=== PATIENT | male | born 1985 | race Caucasian/White ===

== ENCOUNTER 2017-01-17 16:43 | Observation (INO) | payer OTHER ==
[~2017-01-17] VITALS: Ht 180.3 cm; Wt 67.9 kg
[2017-01-17] MEDS ORDERED: VST25HP PO (17:25)
[2017-01-17] MEDS ORDERED: TRAZ100T29 PO (17:25)
[2017-01-17 17:32] LABS: BASO % 0.7 %; BASO ABS # 0.05 K/uL (0-0.2); COMPLETE YES; EOS % 0.7 %; HEMATOCRIT 43.9 % (42-52); IG% 0.3 %; LYMPH % 26.1 %; LYMPH ABS # 1.84 K/uL (1.2-3.4); MEAN CELL VOLUME 90.3 fL (80-100); MEAN CORPUSCULAR HEMOGLOBIN 31.9 pg (25-34); MEAN CORPUSCULAR HGB CONC 35.3 g/dl (32-36); MEAN PLATELET VOLUME 9.8 fL (7.4-10.4); MONO % 7.5 %; NEUT % 64.7 %; PLATELET COUNT 326 K/uL (130-400); RED BLOOD COUNT 4.86 M/uL (4.7-6.1); WHITE BLOOD COUNT 7.06 K/uL (4.8-10.8)
[2017-01-17 17:44] LABS: PROTHROMBIN TIME (PATIENT) 10.6 SECONDS (9.0-12.0)
[2017-01-17 17:44] LABS: URINE APPEARANCE CLEAR (CLEAR); URINE BILIRUBIN NEG (NEG); URINE COLOR YELLOW; URINE NITRITE NEG (NEG); URINE PH 6.5 (4.5-7.5); UROBILINOGEN NEG (NEG); ZZUR CULT IF INDIC CLEAN CATCH NO
[2017-01-17 17:45] LABS: BUN/CREATININE RATIO 6.6 (10-20); CALCIUM 8.9 mg/dl (8.5-10.1); CREATININE 1.2 mg/dl (0.60-1.40); POTASSIUM 3.5 mmol/L (3.5-5.1)
[2017-01-17 17:48] LABS: MANUAL MICROSCOPIC REQUIRED? NO; REVIEW REQ? NO
[2017-01-17 17:56] LABS: THYROID STIMULATING HORMONE 1.48 uIu/ml (0.300-4.500)
[2017-01-17] MEDS ORDERED: OPTIRAY 320 IV PRN (18:15)
[2017-01-17] MEDS ORDERED: NITROGLYCERIN 0.4 MG SL PER TAB CHARGE SL PRN (18:30)
[2017-01-17] MEDS ORDERED: ACETAMINOPHEN 325 MG TAB PO PRN (18:30)
[2017-01-17] MEDS ORDERED: ZOLPIDEM TARTRATE 5 MG TAB PO PRN (18:30)
[2017-01-17] MEDS ORDERED: ONDANSETRON INJ 2 MG/ML 2 ML VIAL IV PRN (18:30)
[2017-01-17 18:31] LABS: BENZODIAZEPINE, URINE NEG (NEG); COCAINE,URINE NEG (NEG); PHENCYCLIDINE, URINE NEG (NEG)
--- NOTE | 2017-01-17 18:51 | DIAGNOSTIC IMAGING REPORT ---
CHEST CTA for PULMONARY ARTERIES CT DOSE: 211.88 mGy.cm HISTORY: Atypical chest pain. TECHNIQUE: Multiaxial CT images of the chest were performed following the intravenous administration of contrast to evaluate the pulmonary arteries. Maximal intensity projection images were also obtained. COMPARISON STUDY: None. FINDINGS: There is a normal caliber thoracic aorta with no evidence for dissection. There is no evidence for pulmonary embolus. No pleural effusions. No pneumothorax. The liver and spleen are unremarkable. No mediastinal or hilar lymphadenopathy. The central airways are patent. Small biapical pleural-parenchymal scarlike densities. Otherwise, the lungs are clear. IMPRESSION: No evidence for pulmonary embolus. Electronically signed by: Zana Arcos M.D. 01/17/2017 6:50 PM Dictated Date/Time: 01/17/2017 6:37 PM
[2017-01-17] MEDS ORDERED: IV FLUIDS COMPLETED PRN (19:00)
[2017-01-17 19:06] LABS: CKMB/CK RATIO 0.6 (0-3.0); MAGNESIUM 2.4 mg/dl (1.8-2.4)
[2017-01-17 19:55] VITALS: Ht 180.3 cm; Wt 67.9 kg
[2017-01-17 19:59] VITALS: BP 132/78; PULSE 73; TEMP 37.1; O2SAT 98
--- NOTE | 2017-01-17 21:12 | History and Physical ---
History & Physical Date & Time of Service: Jan 17, 2017 at 21:05 Chief Complaint: Chest Pain Of Uncertain Etiology, Hx Of Syncope Primary Care Physician: No Doctor, Assigned History of Present Illness Source: patient The patient is a 32-year-old male who presents emergency department with a sudden onset at 3:00 this afternoon of chest tightness, shortness of breath, lightheadedness and dizziness. He does have a history of syncopal episodes in the past most recently in 2014 with undetermined etiology. He reports normal eating and drinking habits, normal exercise and otherwise living habits. He's had no recent GI, respiratory, urinary or other signs of illness. Past Medical/Surgical History Medical Problems: (1) Anxiety Status: Chronic (2) Depression Status: Chronic Social History Smoking Status: Current Every Day Smoker Smokeless Tobacco Use: No Alcohol Use: none Drug Use: none Occupational Status: employed Multi-Drug Resistant Organ[employer] History of MDRO: No Allergies Coded Allergies: No Known Allergies (Unverified , 01/17/17) Home Medications Scheduled Trazodone Hcl (Trazodone), 100 MG PO HS Scheduled PRN Hydroxyzine HCl (Hydroxyzine Pamoate), 25 MG PO Q6 PRN for Anxiety Review of Systems The patient denies palpitations, cough, lower extremity swelling, vision change , hearing change, sore throat, fevers, chills, sweats, weight change, fatigue, nausea, vomiting, abdominal pain, pelvic pain, blood in urine or stool, dysuria , urinary frequency or urgency, memory loss, rash, abnormal bruising or bleeding , imbalance, focal or generalized weakness, numbness or tingling in arms or legs , arthralgias or myalgias, back or neck pain, night sweats. The review of systems is otherwise negative other than for that already noted above, and at least 10 systems have been reviewed. Physical Exam Vital Signs Date Time Temp Pulse Resp B/P Pulse Ox O2 Delivery O2 Flow Rate FiO2 01/17/17 20:00 Room Air 01/17/17 19:59 37.1 73 17 132/78 98 Room Air 01/17/17 19:55 Room Air 01/17/17 19:44 81 16 121/67 99 01/17/17 18:46 79 18 125/68 98 Room Air 01/17/17 17:47 89 18 125/60 97 Room Air 80 137/71 82 126/88 3/16/17 17:25 100 Room Air 01/17/17 17:01 83 01/17/17 16:48 36.9 93 18 149/83 100 Room Air 01/17/17 16:48 100 Room Air The patient is awake, well-developed and adequately nourished, alert and oriented 3, normocephalic and atraumatic, lying in bed and in no acute distress. HEENT--PERRL, EOMI, mucous membranes and oropharynx moist. Neck--supple, no JVD or bruits, thyroid normal, trachea midline, no adenopathy. Heart--normal S1 and S2, no extra beats, no murmurs, rubs or gallops. Lungs--clear bilaterally with good air movement, no respiratory distress, no accessory muscle use. Abdomen--normal bowel sounds and soft, nontender and nondistended, no hernias or masses, no organomegaly. Extremities--no cyanosis, clubbing or edema. There are good distal pulses b/l. Dermatologic--normal skin turgor, normal color, warm and dry, no abnormal lymph nodes, no rash. Neurologic--cranial nerves II through XII grossly intact, motor and sensory examination normal. Rheumatologic--normal range of motion, nontender, muscles and joints. Psychiatric--normal affect. Diagnostics Laboratory Results Results Past 24 Hours Test 01/17/17 16:14 01/17/17 16:55 01/17/17 17:27 Range/Units White Blood Count 7.06 4.8-10.8 K/uL Red Blood Count 4.86 4.7-6.1 M/uL Hemoglobin 15.5 14.0-18.0 g/dL Hematocrit 43.9 42-52 % Mean Corpuscular Volume 90.3 80-100 fL Mean Corpuscular Hemoglobin 31.9 25-34 pg Mean Corpuscular Hemoglobin Concent 35.3 32-36 g/dl Platelet Count 326 130-400 K/uL Mean Platelet Volume 9.8 7.4-10.4 fL Neutrophils (%) (Auto) 64.7 % Lymphocytes (%) (Auto) 26.1 % Monocytes (%) (Auto) 7.5 % Eosinophils (%) (Auto) 0.7 % Basophils (%) (Auto) 0.7 % Neutrophils # (Auto) 4.57 1.4-6.5 K/uL Lymphocytes # (Auto) 1.84 1.2-3.4 K/uL Monocytes # (Auto) 0.53 0.11-0.59 K/uL Eosinophils # (Auto) 0.05 0-0.5 K/uL Basophils # (Auto) 0.05 0-0.2 K/uL RDW Standard Deviation 40.2 36.4-46.3 fL RDW Coefficient of Variation 12.1 11.5-14.5 % Immature Granulocyte % (Auto) 0.3 % Immature Granulocyte # (Auto) 0.02 0.00-0.02 K/uL Prothrombin Time 10.6 9.0-12.0 SECONDS Prothromb Time International Ratio 1.0 0.9-1.1 Activated Partial Thromboplast Time 26.2 21.0-31.0 SECONDS Partial Thromboplastin Ratio 1.0 Sodium Level 137 136-145 mmol/L Potassium Level 3.5 3.5-5.1 mmol/L Chloride Level 101 98-107 mmol/L Carbon Dioxide Level 29 21-32 mmol/L Anion Gap 7.0 3-11 mmol/L Blood Urea Nitrogen 8 7-18 mg/dl Creatinine 1.20 0.60-1.40 mg/dl Est Creatinine Clear Calc Drug Dose 95.8 ml/min Estimated GFR () 93.5 Estimated GFR (Non- 80.7 BUN/Creatinine Ratio 6.6 10-20 Random Glucose 84 70-99 mg/dl Calcium Level 8.9 8.5-10.1 mg/dl Magnesium Level 2.4 1.8-2.4 mg/dl Total Creatine Kinase 298 39-308 U/L Creatine Kinase MB 1.7 0.5-3.6 ng/ml Creatine Kinase MB Ratio 0.6 0-3.0 Troponin I < 0.015 0-0.045 ng/ml Thyroid Stimulating Hormone (TSH) 1.480 0.300-4.500 uIu/ml Free Thyroxine 0.90 0.80-1.60 ng/dl Urine Color YELLOW Urine Appearance CLEAR CLEAR Urine pH 6.5 4.5-7.5 Urine Specific [place] 1.000 1.000-1.030 Urine Protein NEG NEG Urine Glucose (UA) NEG NEG Urine Ketones NEG NEG Urine Occult Blood NEG NEG Urine Nitrite NEG NEG Urine Bilirubin NEG NEG Urine Urobilinogen NEG NEG Urine Leukocyte Esterase NEG NEG Urine Opiates Screen NEG NEG Urine Methadone, Qualitative NEG NEG Urine Barbiturates NEG NEG Urine Phencyclidine (PCP) Level NEG NEG Ur Amphetamine/Methamphetamine NEG NEG MDMA (Ecstasy) Screen NEG NEG Urine Benzodiazepines Screen NEG NEG Urine Cocaine Metabolite NEG NEG Urine Marijuana (THC) NEG NEG Bedside D-Dimer > 450 0-450 ng/mlFEU Bedside Troponin I 0.000 0-0.045 ng/ml Diagnostic Radiology Patient Name: YAA HERRERA Unit Number: [id number] Dictated: 01/17/171836 Transcribed: 01/17/171836 PA Printed Date/Time: [~ rep prt dt]/[~ rep prt tm] [~ rep ct labl] - [~ rep ct ivnm] [facility] [place] [address] Dictated: 01/17/171836 Transcribed: 01/17/171836 PA Printed Date/Time: [~ rep prt dt]/[~ rep prt tm] [~ rep ct labl] - [~ rep ct ivnm] CHEST CTA for PULMONARY ARTERIES CT DOSE: 211.88 mGy.cm HISTORY: Atypical chest pain. TECHNIQUE: Multiaxial CT images of the chest were performed following the intravenous administration of contrast to evaluate the pulmonary arteries. Maximal intensity projection images were also obtained. COMPARISON STUDY: None. FINDINGS: There is a normal caliber thoracic aorta with no evidence for dissection. There is no evidence for pulmonary embolus. No pleural effusions. No pneumothorax. The liver and spleen are unremarkable. No mediastinal or hilar lymphadenopathy. The central airways are patent. Small biapical pleural-parenchymal scarlike densities. Otherwise, the lungs are clear. IMPRESSION: No evidence for pulmonary embolus. Electronically signed by: Zana Arcos M.D. 01/17/2017 6:50 PM Dictated Date/Time: 01/17/2017 6:37 PM The status of this report is Signed. Draft = Not yet reviewed or approved by Radiologist. Signed = Reviewed and approved by Radiologist. <AttendingPhy></AttendingPhy> <FamilyPhy>No Doctor, Assigned</FamilyPhy> < PrimaryPhy>No Doctor, Assigned</PrimaryPhy> <UnitNumber>[id number]</UnitNumber> <VisitNumber>[id number]</VisitNumber> <PatientName>YAA HERRERA</PatientName > <DateOfBirth>1985</DateOfBirth> <Location>[facility]</Location> <ServiceDate> 01/17/17</ServiceDate> <MNE>ESINDI</MNE> <OrderingPhy>Guanaco Obando M.D.< /OrderingPhy> <OrderingPhyMNE>f rep ord dr kiser</OrderingPhyMNE> <DictatingPhyMNE >f rep dict dr kiser</DictatingPhyMNE> <CCListMNE>f rep ct mne</CCListMNE> < AdmittingPhyMNE>f pt admit dr kiser</AdmittingPhyMNE> <AttendingPhyMNE>f pt attend dr kiser</AttendingPhyMNE> <ConsultingPhyMNE>f pt consult dr kiser</ConsultingPhyMNE> <FamilyPhyMNE>f pt fam dr kiser</FamilyPhyMNE> <OtherPhyMNE>f pt other dr kiser</OtherPhyMNE> < PrimaryPhyMNE>f pt prim care dr kiser</PrimaryPhyMNE> <ReferringPhyMNE>f pt referring dr kiser</ReferringPhyMNE> EKG EKG shows normal sinus rhythm at 88 bpm, there are no acute ST-T changes. Impression Assessment and Plan Sudden onset of chest tightness/shortness of breath/lightheadedness/history of syncope--the patient will be admitted to the telemetry unit for serial cardiac enzymes, cardiac rhythm monitoring and a 2-D echocardiogram with Dopplers. Main concern in this patient is going to be heart rhythm irregularity as a cause of his symptoms. Of note, his d-dimer was positive, and I ordered a CTA of the chest for PE which was negative. Level of Care Telemetry Advanced Directives Existing Advance Directive: No Existing Living Will: No Existing Power of Housekeeping Worker: No Resuscitation Status FULL RESUSCITATION VTE Prophylaxis VTE Risk Assessment Done? Y/N: Yes Risk Level: Low Given or contraindicated: SCD's Social Service Consult None Apply
[2017-01-17 23:29] VITALS: BP 137/73; PULSE 70; TEMP 36.8; O2SAT 100
[2017-01-18] VITALS (7 sets, daily range): BP systolic 96–129; BP diastolic 55–76; PULSE 62–72; TEMP 36.8–36.9; O2SAT 98–100
--- NOTE | 2017-01-18 00:13 | EMERGENCY ROOM VISIT NOTE ---
History Report prepared by Shirley: Mei Giron Under the Supervision of: Dr. Nate Kuo M.D. First contact with patient: 17:06 Chief Complaint: SEIZURE Stated Complaint: SEIZURE Nursing Triage Summary: Patient arrives via ALS from home with complaints of seizure activity that lasted around 5 minutes. Patient was with friend sitting on couch when this happened, friend stated the patient got real pale in color. He began to feel like there was something stuck in his throat "like a burp was stuck" then he got lightheaded and SOB. Patient has history of seizures, last one was in 2014 - currently on no medication for them. Also complains of sore neck. 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 The patient states that he was sitting on the couch at home and started to feel short of breath. He states, "I felt like I had a burp stuck in my throat." He developed chest tightness, neck pain, lightheadedness, and he felt like he was going to pass out. His friend that was with him said that he became very pale and started to shake. The patient states that he felt uncomfortable but did not lose consciousness. He drank water and ate and his symptoms resolved. The patient states that he felt like he was going to have a "seizure" but he "caught it before it could happen." He rates his current symptoms as a 1/10 in severity. He currently denies any headache, neck pain, chest pain, shortness of breath, abdominal pain, vomiting, black or bloody stools, and recent flu-like symptoms. The patient has a history of episodes where he gets lightheaded and passes out. This has been happening since he was a child. He was never taken to the hospital for evaluation after these episodes when he was a child. The patient had a work-up 10 years ago that was normal. In 2013 he had an MRI of the brain, EEG, and ECG that were all normal. He saw a neurologist and tested negative for epilepsy at that time. He has never been diagnosed with a seizure disorder and has never been on any medications for seizures. The patient was brought to the ED by ambulance. He has a history of anxiety and depression, and he states that he has been under a lot of stress lately due to being homeless and not sleeping. He has been suicidal in the past but denies any current suicidal ideation. He states he feels like his symptoms were likely from anxiety due to all the stress he has been. He is intermittently out in the cold but currently staying with a friend. He also just recently got a job. 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 The last time he had a near- syncopal episode was in 2014. He said he passed out once when he was vomiting violently and another time he passed out when he had a needle put into his arm at the hospital. 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 A total of 10 systems reviewed and were otherwise negative. Past Medical & Surgical Medical Problems: (1) Anxiety (2) Chest pain of uncertain etiology (3) Depression (4) History of syncope Family History No pertinent history stated. Social History Smoking Status: Current Every Day Smoker Alcohol Use: none Drug Use: none Marital Status: single Housing Status: other (homeless) Occupation Status: employed Current/Historical Medications Scheduled Trazodone Hcl (Trazodone), 100 MG PO HS Scheduled PRN Hydroxyzine HCl (Hydroxyzine Pamoate), 25 MG PO Q6 PRN for Anxiety Allergies Coded Allergies: No Known Allergies (Unverified , 01/17/17) Physical Exam Vital Signs Date Time Temp Pulse Resp B/P Pulse Ox O2 Delivery O2 Flow Rate FiO2 01/17/17 17:47 89 18 125/60 97 Room Air 80 137/71 82 126/88 01/17/17 17:25 100 Room Air 01/17/17 17:01 83 01/17/17 16:48 36.9 93 18 149/83 100 Room Air 01/17/17 16:48 100 Room Air Physical Exam Constitutional: Vital signs reviewed. Eyes: Pupils are equal round reactive to light. Conjunctiva are noninjected. ENT: Pharynx is clear without erythema or exudate. Mucous membranes are moist. Neck supple without meningeal signs. Respiratory: Clear to auscultation bilaterally. Breath sounds are equal bilaterally. Cardiovascular: Regular rate and rhythm. No rubs or gallops. GI: Soft, nondistended and nontender. Bowel sounds are present. Musculoskeletal: No peripheral edema. No lower extremity tenderness. Integumentary: No cyanosis. Neurological: The patient is awake and alert. Cranial nerves II-XII are intact. Motor is 5 out of 5 all extremities. Sensation is intact to light touch all extremities. Normal speech. No pronator drift. Psychiatric: Normal affect. Medical Decision & Procedures ER Provider Diagnostic Interpretation: A repeat ECG performed in the ED revealed a NSR at [address] depressions inferiorly which has improved from prior. Laboratory Results 01/17/17 16:14 Red Blood Count 4.86, Mean Corpuscular Volume 90.3, Mean Corpuscular Hemoglobin 31.9, Mean Corpuscular Hemoglobin Concent 35.3, Mean Platelet Volume 9.8, Neutrophils (%) (Auto) 64.7, Lymphocytes (%) (Auto) 26.1, Monocytes (%) (Auto) 7.5, Eosinophils (%) (Auto) 0.7, Basophils (%) (Auto) 0.7, Neutrophils # (Auto) 4.57, Lymphocytes # (Auto) 1.84, Monocytes # (Auto) 0.53, Eosinophils # (Auto) 0.05, Basophils # (Auto) 0.05 01/17/17 16:14 Test 01/17/17 16:14 01/17/17 16:55 01/17/17 17:27 White Blood Count 7.06 K/uL (4.8-10.8) Red Blood Count 4.86 M/uL (4.7-6.1) Hemoglobin 15.5 g/dL (14.0-18.0) Hematocrit 43.9 % (42-52) Mean Corpuscular Volume 90.3 fL (80-100) Mean Corpuscular Hemoglobin 31.9 pg (25-34) Mean Corpuscular Hemoglobin Concent 35.3 g/dl (32-36) Platelet Count 326 K/uL (130-400) Mean Platelet Volume 9.8 fL (7.4-10.4) Neutrophils (%) (Auto) 64.7 % Lymphocytes (%) (Auto) 26.1 % Monocytes (%) (Auto) 7.5 % Eosinophils (%) (Auto) 0.7 % Basophils (%) (Auto) 0.7 % Neutrophils # (Auto) 4.57 K/uL (1.4-6.5) Lymphocytes # (Auto) 1.84 K/uL (1.2-3.4) Monocytes # (Auto) 0.53 K/uL (0.11-0.59) Eosinophils # (Auto) 0.05 K/uL (0-0.5) Basophils # (Auto) 0.05 K/uL (0-0.2) RDW Standard Deviation 40.2 fL (36.4-46.3) RDW Coefficient of Variation 12.1 % (11.5-14.5) Immature Granulocyte % (Auto) 0.3 % Immature Granulocyte # (Auto) 0.02 K/uL (0.00-0.02) Prothrombin Time 10.6 SECONDS (9.0-12.0) Prothromb Time International Ratio 1.0 (0.9-1.1) Activated Partial Thromboplast Time 26.2 SECONDS (21.0-31.0) Partial Thromboplastin Ratio 1.0 Anion Gap 7.0 mmol/L (3-11) Est Creatinine Clear Calc Drug Dose 95.8 ml/min Estimated GFR () 93.5 Estimated GFR (Non- 80.7 BUN/Creatinine Ratio 6.6 (10-20) Calcium Level 8.9 mg/dl (8.5-10.1) Magnesium Level 2.4 mg/dl (1.8-2.4) Total Creatine Kinase 298 U/L (39-308) Creatine Kinase MB 1.7 ng/ml (0.5-3.6) Creatine Kinase MB Ratio 0.6 (0-3.0) Troponin I < 0.015 ng/ml (0-0.045) Thyroid Stimulating Hormone (TSH) 1.480 uIu/ml (0.300-4.500) Free Thyroxine 0.90 ng/dl (0.80-1.60) Urine Color YELLOW Urine Appearance CLEAR (CLEAR) Urine pH 6.5 (4.5-7.5) Urine Specific [place] 1.000 (1.000-1.030) Urine Protein NEG (NEG) Urine Glucose (UA) NEG (NEG) Urine Ketones NEG (NEG) Urine Occult Blood NEG (NEG) Urine Nitrite NEG (NEG) Urine Bilirubin NEG (NEG) Urine Urobilinogen NEG (NEG) Urine Leukocyte Esterase NEG (NEG) Urine Opiates Screen NEG (NEG) Urine Methadone, Qualitative NEG (NEG) Urine Barbiturates NEG (NEG) Urine Phencyclidine (PCP) Level NEG (NEG) Ur Amphetamine/Methamphetamine NEG (NEG) MDMA (Ecstasy) Screen NEG (NEG) Urine Benzodiazepines Screen NEG (NEG) Urine Cocaine Metabolite NEG (NEG) Urine Marijuana (THC) NEG (NEG) Bedside D-Dimer > 450 ng/mlFEU (0-450) Bedside Troponin I 0.000 ng/ml (0-0.045) Laboratory results as reviewed by me. ECG Indication: chest pain Rate (beats per minute): 88 Rhythm: normal sinus Findings: nonspecific-ST abn (Inferior), no ectopy Comparison ECG Date: no prior available ED Course 1706: The patient was evaluated in room A2. A complete history and physical exam was performed. 1752: I reassessed the patient at this time. He is doing well and not currently having any chest pain. He has no family history of coronary artery disease that he knows of. He denies amphetamine or cocaine use. I discussed the results and treatment plan with the patient. I answered all pertaining questions that he had. He expressed understanding and verbalized agreement. He agrees to hospitalization for his chest pain. 1757: I spoke with Dr. Obando. We discussed the patient's results and treatment plan. The patient will be evaluated by the [facility] for further management. Medical Decision This is a 32-year-old male who presents with a near syncopal episode. Differential diagnosis includes anxiety, panic attack, vasovagal episode, orthostatic hypertension, metabolic derangement. I did perform a limited focused review of portions of the patient's old chart on the electronic medical record. The patient has had no prior visits to this hospital. I did evaluate the patient as noted above. He is presenting with a near syncopal episode. He described the symptoms as a seizure to the nurse, EMS and to myself but he states he was awake the entire time. He was shaking throughout his body but he was conscious and was able to eat and drink and the symptoms went away. He had associated chest tightness and shortness of breath and felt to was very anxious at the time. He describes syncopal episodes in the past that started when he was child. He states that he passed out once while stating the pledget allegiance. Other times he passed out when he was vomiting frequently and another episode when he had a needle placed in his arm. These last 2 episodes sound like vasovagal episodes. He has seen a neurologist as well as had a negative MRI of the brain and EEG and has never been placed on antiepileptic medications or diagnosed with seizure disorder. The patient was placed on a continuous cardiac catheterization technologist. I did order and personally review the patient's 12-lead EKG as described above. His 12-lead EKG demonstrates ST depressions in the inferior leads. He is not having any chest pain currently. I did order and review the patient's blood work as noted in the electronic medical record. His d-dimer is slightly elevated. Troponin is negative. After discussion with the patient, I did order a CT of the chest. I did review the images myself as well as the radiology report as described above. There is no evidence of pulmonary embolism. I did reassess the patient. He is not having any chest discomfort. I did repeat the twelve-lead EKG which demonstrated some mild persistent ST changes as described above. Because of his abnormal EKG and complaints of chest discomfort and shortness of breath with near-syncope I did feel hospitalization and repeat cardiac enzymes was indicated. I did discuss case with the hospitalist and case work aide. I did discuss the test results with the patient. Consults Time Called: [phone] Consulting Physician: Dr. Obando Returned Call: [phone] Obando. We discussed the patient's results and treatment plan. The patient will be evaluated by the [facility] for further management. Impression Primary Impression: Precordial chest pain Additional Impressions: Abnormal ECG Near syncope Scribe Attestation The scribe's documentation has been prepared under my direct and personally reviewed by me in its entirety. I confirm that the note above accurately reflects all work, treatment, procedures, and medical decision making performed by me. Departure Information Dispostion Being Evaluated By Hospitalist Patient Instructions My [facility] Problem Qualifiers
[2017-01-18 03:26] LABS: CKMB/CK RATIO 0.5 (0-3.0)
[2017-01-18 07:07] LABS: BASO ABS # 0.06 K/uL (0-0.2); COMPLETE YES; IG% 0.2 %; LYMPH % 40.6 %; LYMPH ABS # 2.48 K/uL (1.2-3.4); MEAN CELL VOLUME 90.5 fL (80-100); MEAN CORPUSCULAR HEMOGLOBIN 31.6 pg (25-34); MEAN CORPUSCULAR HGB CONC 34.9 g/dl (32-36); MEAN PLATELET VOLUME 9.9 fL (7.4-10.4); MONO % 6.2 %; PLATELET COUNT 263 K/uL (130-400); RED BLOOD COUNT 4.31 M/uL (4.7-6.1); WHITE BLOOD COUNT 6.11 K/uL (4.8-10.8)
[2017-01-18 07:40] LABS: BUN/CREATININE RATIO 10.3 (10-20); CALCIUM 8.6 mg/dl (8.5-10.1); CREATININE 1.1 mg/dl (0.60-1.40); MAGNESIUM 2.4 mg/dl (1.8-2.4); POTASSIUM 4.1 mmol/L (3.5-5.1)
[2017-01-18 11:32] LABS: CKMB/CK RATIO 0.4 (0-3.0)
--- NOTE | 2017-01-18 15:18 | Discharge Instructions ---
Discharge Instructions Date of Service Jan 18, 2017. Admission Reason for Admission: Chest Pain Of Uncertain Etiology, Hx Of Syncope Discharge Discharge Diagnosis / Problem: atypical chest pain Discharge Goals Goal(s): Decrease discomfort Activity Recommendations Activity Limitations: resume your previous activity . Current Hospital Diet Patient's current hospital diet: AHA Diet (Heart Healthy) Discharge Diet Recommended Diet: Regular Diet Pending Studies Studies pending at discharge: no Medical Emergencies . Who to Call and When: Medical Emergencies: If at any time you feel your situation is an emergency, please call 911 immediately. . Non-Emergent Contact Non-Emergency issues call your: Primary Care Provider . . "Provider Documentation" section prepared by Eneida Light. VTE Core Measure Inpt VTE Proph given/why not?: SCD's
--- NOTE | 2017-01-18 15:32 | Discharge Summary ---
Discharge Summary Date of Service Jan 18, 2017. Discharge Summary Admission Date: Jan 17, 2017 at 18:19 Discharge Date: Jan 18, 2017 Discharge Disposition: Home Principal Diagnosis: atypical chest pain Medication Reconciliation Continued Medications: Hydroxyzine HCl (Hydroxyzine Pamoate) 25 Mg Tab 25 MG PO Q6 PRN for Anxiety Trazodone Hcl (Trazodone) 100 Mg Tab 100 MG PO HS, TAB Hospital Course This is a 32 year-old male who does not have significant medical history who comes in with chest tightness, palpitations, lightheadedness. He reports this happening occasionally in the past. He's also had syncopal episodes that have warranted a neurology work-up outpatient including EEG which was all negative. He is homeless and currently lives with a friend. Since he has been in the hospital, he has not had any episodes of chest discomfort or palpitations. Troponins and EKGs have been unremarkable except for sinus bradycardia. Tele monitor shows 60s while he is awake. On day of discharge, patient reports no further chest pains, no palpitations, no lightheadedness. No SOB, no abd pain, n/v/c/d, no urinary symptoms. HE is comfortable to go back to his friend's apartment and will be arranging to see a PCP. Vital Signs Date Time Temp Pulse Resp B/P Pulse Ox O2 Delivery O2 Flow Rate FiO2 01/18/17 12:00 Room Air 01/18/17 11:48 36.9 66 18 109/69 98 nad, aox3, flat affect eomi, perrl, anicteric s1 s2 rrr, no murmurs appreciated ctab no w/r/r abd soft nt/nd +BS no LE edema 1. Atypical chest pain - ruled out for ACS with negative cardiac enzymes and unremarkable EKG - likely related to anxiety - will discharge with follow-up to PCP 2. Anxiety - cont home trazodone and hydroxyzine Total Time Spent: Greater than 30 minutes This includes examination of the patient, discharge planning, medication reconciliation, and communication with other providers. Discharge Instructions Please refer to the electronic Patient Visit Report (Discharge Instructions) for additional information.
== END 2017-01-18 16:10 | disposition home or self-care (01) ==
LOC: ENRESERVDT → ENRESERVTM → EDBD 16:43 → C.EDA 16:46 → C.MED 18:19
PROVIDERS: ADMIT Hospitalist; ATTEND Internal Medicine
DX: R07.89 Other chest pain (principal); R94.31 Abnormal electrocardiogram [ECG] [EKG]; R00.2 Palpitations; R55 Syncope and collapse; R06.02 Shortness of breath; F17.200 Nicotine dependence, unspecified, uncomplicated; Z59.0 Homelessness

== ENCOUNTER 2017-01-26 00:49 | Emergency (ER) | payer OTHER ==
[~2017-01-26] VITALS: Ht 180.3 cm; Wt 71.8 kg
[~2017-01-26 00:49] MED LIST: TRAZ100T29 PO; VST25HP PO
[2017-01-26 01:13] VITALS: Ht 180.3 cm; Wt 71.8 kg
[2017-01-26 01:28] LABS: HEMATOCRIT 39.1 % (42-52); MEAN CELL VOLUME 89.1 fL (80-100); MEAN CORPUSCULAR HEMOGLOBIN 31.4 pg (25-34); MEAN CORPUSCULAR HGB CONC 35.3 g/dl (32-36); MEAN PLATELET VOLUME 9.5 fL (7.4-10.4); PLATELET COUNT 266 K/uL (130-400); RED BLOOD COUNT 4.39 M/uL (4.7-6.1); WHITE BLOOD COUNT 9.82 K/uL (4.8-10.8)
[2017-01-26] MEDS ORDERED: BUPR75TA20 PO (01:35)
--- NOTE | 2017-01-26 01:38 | EMERGENCY ROOM VISIT NOTE ---
History Report prepared by Shirley: Jewell White Under the Supervision of: Dr. Kylee Wolff D.O. First contact with patient: 00:53 Chief Complaint: MENTAL HEALTH EVALUATION Stated Complaint: MENTAL HEALTH History of Present Illness The patient is a 32 year old male who presents to the Emergency Room with complaints of worsening depression over the last several days. The patient states that this evening he was trying to get a hotel room while he was intoxicated. He states that he is always just looking for a place out of the cold to stay each night. 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 He states that this evening he was brought to the emergency department via ALS due to his intoxication and suicidal threats. The patient states that he is currently on Wellbutrin and Trazodone. He states that he was previously on Vistaril. The patient states that he previously stayed at a friend's house. He states that he does wish harm to himself. The patient states that he was previously suicidal in 2010, but denies seeking any psychiatric help at that time. He states that he had a suicidal attempt in 2010 , stating that he took four ecstasy pills at one time. The patient states that he has a diagnosis of major depressive disorder and anxiety. He states that he doesn't typically drink a lot. The patient states that he feels that he will lose his job because he hasn't been performing well at work. He states that he has been sleep deprived. The patient states that he vomited this evening, but he denies any abdominal pain. Source of History: patient Onset: several days Position: other (global) Quality: other (depression) Timing: worsening Associated Symptoms: + vomiting, No abdominal pain Note: Associated Symptoms: Suicidal threats, sleep depravation, alcohol intoxication Review of Systems See HPI for pertinent positives & negatives. A total of 10 systems reviewed and were otherwise negative. Past Medical & Surgical Medical Problems: (1) Anxiety (2) Chest pain of uncertain etiology (3) Depression (4) History of syncope Family History No pertinent family history stated. Social History Smoking Status: Current Every Day Smoker Alcohol Use: none Drug Use: none Marital Status: single Housing Status: other Occupation Status: employed Current/Historical Medications Scheduled Bupropion (Wellbutrin), 1 TAB PO BID Trazodone Hcl (Trazodone), 100 MG PO HS Scheduled PRN Hydroxyzine HCl (Hydroxyzine Pamoate), 25 MG PO Q6 PRN for Anxiety Allergies Coded Allergies: No Known Allergies (Unverified , 01/26/17) Physical Exam Vital Signs Date Time Temp Pulse Resp B/P Pulse Ox O2 Delivery O2 Flow Rate FiO2 01/26/17 07:01 79 16 110/89 95 Room Air 01/26/17 06:00 79 14 94/61 94 Room Air 01/26/17 05:10 81 01/26/17 05:00 80 18 101/57 94 Room Air 01/26/17 04:00 96 19 106/65 94 Room Air 01/26/17 03:00 86 17 100/66 01/26/17 02:16 92 18 102/62 93 Room Air 01/26/17 01:15 87 01/26/17 01:13 36.7 83 18 110/58 94 Room Air Physical Exam General: Smells of alcohol, appears extremely depressed. HEENT: Head - normocephalic and atraumatic Pupils are equal, round, and reactive to light. Extraocular eye muscles are intact, and sclera are anicteric. Nose - moist nasal mucosa without discharge. Mouth - moist buccal mucosa. Oropharynx is nonerythematous and there is no tonsillar exudate or edema noted. Neck: Supple; no JVD, nuchal rigidity, cervical lymphadenopathy. Heart: Tachycardic rate and regular rhythm. There is a normal S1 and S2 with no murmurs, clicks, or gallops appreciated. Lungs: Clear to auscultation bilaterally with no wheezes, rales, or rhonchi. Abdomen: Soft, completely nontender, nondistended, with good bowel sounds. There are no palpable pulsatile masses or hepatosplenomegaly. There is no guarding, rigidity, or rebound noted. Extremities: No evidence of cyanosis, clubbing, or edema. There are easily palpable peripheral pulses. Skin: warm and dry with good turgor and no rashes. Psych: appears depressed, and admits to suicidal ideation without a plan, admits to drinking excessive alcohol Medical Decision & Procedures Laboratory Results 01/26/17 01:15 01/26/17 01:15 Test 01/26/17 00:00 01/26/17 01:15 Urine Opiates Screen NEG (NEG) Urine Methadone, Qualitative NEG (NEG) Urine Barbiturates NEG (NEG) Urine Phencyclidine (PCP) Level NEG (NEG) Ur Amphetamine/Methamphetamine NEG (NEG) MDMA (Ecstasy) Screen POS (NEG) Urine Benzodiazepines Screen NEG (NEG) Urine Cocaine Metabolite NEG (NEG) Urine Marijuana (THC) NEG (NEG) Red Blood Count 4.39 M/uL (4.7-6.1) Mean Corpuscular Volume 89.1 fL (80-100) Mean Corpuscular Hemoglobin 31.4 pg (25-34) Mean Corpuscular Hemoglobin Concent 35.3 g/dl (32-36) RDW Standard Deviation 39.2 fL (36.4-46.3) RDW Coefficient of Variation 12.1 % (11.5-14.5) Mean Platelet Volume 9.5 fL (7.4-10.4) Anion Gap 8.0 mmol/L (3-11) Est Creatinine Clear Calc Drug Dose 109.7 ml/min Estimated GFR () 116.5 Estimated GFR (Non- 100.6 BUN/Creatinine Ratio 9.5 (10-20) Calcium Level 8.4 mg/dl (8.5-10.1) Total Bilirubin 0.3 mg/dl (0.2-1) Direct Bilirubin 0.1 mg/dl (0-0.2) Aspartate Amino Transf (AST/SGOT) 15 U/L (15-37) Alanine Aminotransferase (ALT/SGPT) 23 U/L (12-78) Alkaline Phosphatase 54 U/L (45-117) Total Protein 7.2 gm/dl (6.4-8.2) Albumin 4.3 gm/dl (3.4-5.0) Thyroid Stimulating Hormone (TSH) 2.590 uIu/ml (0.300-4.500) Salicylates Level < 1.7 mg/dl (2.8-20) Acetaminophen Level < 2 ug/ml (10-30) Ethyl Alcohol mg/dL 188.0 mg/dl (0-3) Laboratory results per my review. ED Course 0057: Past medical records reviewed. The patient was evaluated in room A8. A complete history and physical exam was performed. Laboratory studies were drawn as above. 0120: I reviewed the 302 petition from the patient's business integration manager. 0228: I reevaluated the patient and he is sound asleep and hemodynamically stable. 0410: The patient is sleeping at this time. He is hemodynamically stable. 0530: Patient was felt to be medically cleared. We did request mobile crisis to come perform an evaluation. 0730: The patient was signed out to Dr. De Guzman at change of shift. Medical Decision The patient is a 32 year old male who presents to the ED with worsening depression. Differential diagnosis includes alcohol overdose, drug intoxication , suicidal ideation, mood disorder, thought disorder, worsening depression. Lab interpretation: normal white blood cell count, hemoglobin 13.8, normal TSH and LFTs, glucose 93, normal renal function, alcohol 188, negative and aspirin levels, urine tox screen pending. This is a 32-year-old male patient who presents to the emergency department after making suicidal threats. The patient admits to consuming a significant amount of alcohol. He also describes suffering from depression and having had previous suicidal thoughts. Once mobile crisis arrives, he will have a formal evaluation. The case was signed out to Dr. De Guzman at change of shift. Impression Primary Impression: Suicidal ideation Additional Impression: Alcohol overdose Scribe Attestation The scribe's documentation has been prepared under my direction and personally reviewed by me in its entirety. I confirm that the note above accurately reflects all work, treatment, procedures, and medical decision making performed by me. Departure Information Dispostion Still a Patient Referrals No Doctor, Assigned (PCP) Patient Instructions My [facility] Problem Qualifiers
[2017-01-26 01:43] LABS: BUN/CREATININE RATIO 9.5 (10-20); CALCIUM 8.4 mg/dl (8.5-10.1); POTASSIUM 3.7 mmol/L (3.5-5.1)
[2017-01-26 01:54] LABS: THYROID STIMULATING HORMONE 2.59 uIu/ml (0.300-4.500)
[2017-01-26 02:07] LABS: ACETAMINOPHEN < 2 ug/ml (10-30)
[2017-01-26 06:18] LABS: BENZODIAZEPINE, URINE NEG (NEG); COCAINE,URINE NEG (NEG); PHENCYCLIDINE, URINE NEG (NEG)
--- NOTE | 2017-01-26 07:04 | EMERGENCY ROOM VISIT NOTE ---
ED Visit Note This patient was signed out to me by Dr. Wolff at shift change. At that point the patient, he had been medically cleared and was currently being evaluated by psychiatry. He was drinking and made some suicidal ideations. Mental health saw him in the ER. The patient is willing to come in voluntarily. I talked to him he is cooperative and wants help. Because of this the 302 petition was denied as he is signing in voluntarily. he'll be placed in inpatient setting. He has remained stable in the ER. He was given a nicotine patch. They are presently trying to place him. He'll be signed out at shift change to Dr. Peters who will follow-up on the placement.
[2017-01-26] MEDS ORDERED: NICOTINE 14 MG/24 HR TDSY TD STA (09:33)
--- NOTE | 2017-01-26 17:13 | EMERGENCY ROOM VISIT NOTE ---
ED Visit Note First contact with patient: 17:11 I received this patient at change of shift signout from Dr. De Guzman. Please see his note for continuation of care. The patient was initially seen overnight and was medically cleared. The patient did have an elevated alcohol level. He was observed in the emergency department until he was no longer clinically intoxicated. The patient was evaluated by the [facility] health emergency Department case work aide multiple times. Multiple referrals were made locally. The patient remained stable while in the emergency department. Ultimately he agreed to a voluntary admission for further mental health treatment. The patient had significant depression as well as suicidal ideation. He also had a plan. The patient remained stable while in the emergency department. Ultimately he was accepted at [facility] for inpatient psychiatric treatment. Transfer papers were filled out by myself.
[2017-01-26 17:59] VITALS: BP 126/60; PULSE 85; TEMP 36.7; O2SAT 98
== END 2017-01-26 17:58 ==
LOC: EDBD 00:49 → C.EDA 00:51
DX: T51.0X1A Toxic effect of ethanol, accidental (unintentional), initial encounter (principal); R45.851 Suicidal ideations; F32.9 Major depressive disorder, single episode, unspecified; F10.129 Alcohol abuse with intoxication, unspecified; F41.9 Anxiety disorder, unspecified; F17.210 Nicotine dependence, cigarettes, uncomplicated; Z79.899 Other long term (current) drug therapy; Y90.6 Blood alcohol level of 120-199 mg/100 ml